=== PATIENT | female | born 1995 | race Caucasian/White ===

== ENCOUNTER 2019-01-30 17:33 | Emergency (ER) | payer OTHER ==
[2019-01-30 17:47] VITALS: PULSE 74; RESP 20; TEMP 97.8; O2SAT 99
[2019-01-30 17:50] VITALS: BP 138/80
[2019-01-30 18:17] LABS: APPEARANCE,URINE SL CLDY; COLOR,URINE DK YEL
[2019-01-30 18:19] LABS: GLUCOSE, URINE (UA) NEGATIVE (NEGATIVE); KETONES,URINE NEGATIVE (NEGATIVE)
[2019-01-30 18:20] LABS: BACTERIA 1+ (< 1+); BILIRUBIN,URINE 1+ (NEGATIVE); CRYSTALS NEGATIVE (0-3 AVE/HPF); LEUKOCYTE ESTERASE ,URINE TRACE (NEGATIVE); NITRATE,URINE NEGATIVE (NEGATIVE); OCCULT BLOOD,URINE 3+ (NEG-TRACE); RBC,URINE TNTC (0-3AV/HPF); UROBILINOGEN,URINE NORMAL (0.2-1.0 EU)
[2019-01-30 18:21] LABS: ICTOTEST,URINE NEGATIVE (NEGATIVE)
[2019-01-30] MEDS ORDERED: KETOROLAC TROMETHAMINE 30 MG/ML SOL ONE (18:22)
[2019-01-30] MEDS ORDERED: KETOROLAC TROMETHAMINE 30 MG/ML SOL IM ONE (18:22)
== END 2019-01-30 19:00 | disposition short-term general hospital (02) | DRG 392 ==
LOC: ED 17:33
DX: R10.2 Pelvic and perineal pain (principal); T83.84XA Pain due to genitourinary prosthetic devices, implants and grafts, initial encounter
CPT/HCPCS: 81001; 84703; 96372; 99282; 99283; J1885